=== PATIENT | male | born 1980 | race Caucasian/White ===

== ENCOUNTER → 2021-02-13 | Outpatient (CLI) | payer BC | LOC: KOH-I 12:00 | DX: M54.32 Sciatica, left side (principal) | CPT/HCPCS: 72100 ==

== ENCOUNTER → 2021-11-24 | Outpatient (CLI) | payer BC | LOC: KOH-I 11:28 | DX: M79.671 Pain in right foot (principal); M77.31 Calcaneal spur, right foot | CPT/HCPCS: 73650 ==

== ENCOUNTER → 2022-01-15 | Outpatient (CLI) | payer BC | LOC: KOH-I 10:15 | DX: M79.671 Pain in right foot (principal) | CPT/HCPCS: 73630 ==